=== PATIENT | male | born 1960 | race Caucasian/White ===

== ENCOUNTER → 2017-02-05 | Outpatient (CLI) | payer BC, OTHER ==
--- NOTE | ~2017-02-05 | ECHO ---
Transthoracic Echocardiography Report (TTE) Demographics Patient Name MARIANA BALDWIN Date of Study 02/05/2017 Patient Number [id number] Visit Number [id number] Date of 1960 Room Number Accession Number [id number] Gender Male Age 56 year(s) Referring Snehal Null MD Body Sander Mohsen Renee [facility], Physician Duncan Gutierrez MD RVT Physician Interpreting Snehal Null MD Manager Of Distribution Physician Supervising Ordering Physician Snehal Null MD, MD/MLP Nurse Stress Patrol Inspector Conclusions Contractility Score Summary Normal Left Ventricular contractility was noted. Summary The estimated left ventricular ejection fraction is 65%. Mild concentric left ventricular hypertrophy. Diastolic assessment reveals Grade I diastolic dysfunction. The left atrium is severely dilated by LA volume index measurement. The ascending aorta appears mildly dilated. The maximum diameter measures 4 cm. Procedure Type of Study TTE procedure:2D Echocardiogram. Procedure Date Date: 02/05/2017 Start: 02:35 PM Study Location: Echo Lab Technical Quality: Adequate visualization Indications:Shortness of breath. Appropriate Use Criteria: 9 Patient Status: Routine HR: 67 bpm BP: 164/95 mmHg M-Mode/2D Measurements LV Diastolic Dimension: 4.9 cm LV Systolic Dimension: 2.96 cm LV Septum Diastolic: 1.05 cm LV PW Diastolic: 1.21 cm AO Root Dimension: 3.4 cm Cardiac Output: 8.78 l/min AV Cusp Separation: 2.4 cm RV Diastolic Dimension: 4.1 cm LA volume: 88 ml LVOT: 2.5 cm RV Base: 4.05 cm LVOT VTI: 26.7 cm RV Mid: 3.6 cm LV Stroke volume: 131 ml TAPSE: 2.52 cm TDI-S': 17.5 cm/s Doppler Measurements AV Peak Velocity: 1.48 m/s MV Peak E-Wave: 0.8 m/s AV Peak Gradient: 8.76 mmHg MV Peak A-Wave: 1 m/s AV Mean Gradient: 5 mmHg MV E/A Ratio: 0.8 LVOT Peak Velocity: 1.15 m/s MV P1/2t: 72 msec TR Gradient:6.86 mmHg PV Peak Velocity: 1.14 m/s Estimated RAP:8 mmHg PV Peak Gradient: 5.2 mmHg Estimated RVSP: 15 mmHg Estimated PASP: 14.86 mmHg E' Septal Velocity: 0.06 m/s A' Septal Velocity: 0.1 m/s E' Lateral Velocity: 0.11 m/s A' Lateral Velocity: 0.15 m/s Findings Left Ventricle Mild concentric left ventricular hypertrophy. Diastolic assessment reveals Grade I diastolic dysfunction. Right Ventricle Mildly dilated right ventricle. Left Atrium The left atrium is moderately dilated. Right Atrium The right atrium is mildly dilated. IVC measures 1.72 cm with inspiratory collapse. Mitral Valve Normal mitral valve structure and function. Aortic Valve Normal aortic valve structure and function. Tricuspid Valve Trivial tricuspid regurgitation by color Doppler. Pulmonic Valve Normal pulmonic valve structure and function. Pericardial Effusion Epicardial fat pad noted. Miscellaneous The ascending aorta appears mildly dilated. The maximum diameter measures 4 cm. Pleural Effusion No evidence of pleural effusion. Contractility Score LV regional wall motion:(0-Non visualized 1-Normal 2-Hypokinesis 3-Akinesis 4-Dyskinesis 5-Aneurysm) Signature dtt: Chaka Brian (cardio) dtd: 02/05/17 0506 Physician Self Edit
== END | disposition disaster alternative care site (69) ==
LOC: GCAR 14:30
DX: R06.02 Shortness of breath (principal); I51.7 Cardiomegaly; I77.819 Aortic ectasia, unspecified site